=== PATIENT | female | born 1970 | race American Indian/Alaskan Native ===

== ENCOUNTER 2016-12-12 00:09 | Emergency (ER) | payer SELFPAY ==
[2016-12-12 00:28] VITALS: BP 153/83
[2016-12-12] MEDS ORDERED: KEPPRA 1,000 MG/NS 0.75% 100ML 1,000 MG/100 ML BAG IV ONE (03:13)
[2016-12-12 03:40] LABS: Basophils % (Auto) 0.4 % (0.0-1.8); Eosinophils % (Auto) 0.1 % (0.0-4.3); Hematocrit 32.1 % (35.5-45.6); Hemoglobin 10.2 gm/dl (11.8-15.2); Mean Corpuscular HGB Conc 32 % (32-34); Platelet Count 409 K/mm3 (140-440); Red Blood Count 4.64 M/mm3 (3.65-5.03); Red Cell Distribution Width 19.5 % (13.2-15.2); White Blood Count 10.2 K/mm3 (4.5-11.0)
[2016-12-12 03:48] LABS: Mean Corpuscular Hemoglobin 22 pg (28-32); Mean Corpuscular Volume 69 fl (84-94)
[2016-12-12] MEDS ORDERED: NACL 0.9% 1000 ML 1,000 ML IV ONE (03:50)
[2016-12-12 03:56] LABS: Anion Gap 17 mmol/L; BUN/Creatinine Ratio 16.66; Blood Urea Nitrogen 10 mg/dL (9-20); Calcium 8.9 mg/dL (8.4-10.2); Carbon Dioxide 22 mmol/L (22-30); Chloride 102.9 mmol/L (98-107); Glucose 102 mg/dL (75-100); Potassium 4.4 mmol/L (3.6-5.0); Sodium 137 mmol/L (137-145)
--- NOTE | 2016-12-12 04:09 | Emergency Department Report ---
ED Seizure HPI - General Chief Complaint: Seizure Stated Complaint: SEIZURE Time Seen by Provider: 12/12/16 03:02 Source: patient, family, EMS Mode of arrival: Stretcher Limitations: No Limitations - History of Present Illness Initial Comments: 46-year-old female with a past medical history seizures presents to the hospital after having a seizure. She has no preceding symptoms. Patient states he takes Keppra 1000 mg twice a day but only took one dose yesterday. She was attempting to make the medication stretch and last longer since she has trouble affording refills. She denies any pain. Positive lip contusion. Patient is endentulous. - Related Data Previous Rx's Medication Instructions Recorded Last Taken Type levETIRAcetam [Keppra TAB] 1,000 mg PO BID #60 tablet 12/12/16 Unknown Rx Allergies Allergy/AdvReac Type Severity Reaction Status Date / Time No Known Allergies Allergy Unverified 12/12/16 00:19 ED Review of Systems ROS: Stated complaint: SEIZURE Other details as noted in HPI Comment: All other systems reviewed and negative Other: Constitutional: No fevers chills Eyes: No eye pain visual changes ENT: No ear pain or throat pain Neck: Denies pain Respiratory: Denies cough wheezing shortness of breath Cardiovascular: Denies chest pain, palpitations, syncope GI: Denies abdominal pain, nausea, vomiting, diarrhea : Denies dysuria Musculoskeletal: Denies back pain Skin: Denies rash, lesions, erythema Neurologic: Denies headache, numbness, weakness Psychiatric: Denies suicidal ideation, hallucinations ED Past Medical Hx - Past Medical History Previous Medical History?: Yes Hx Seizures: Yes - Surgical History Past Surgical History?: Yes Additional Surgical History: Jaw surgery - Social History Smoking Status: Never Smoker Substance Use Type: Prescribed - Medications Home Medications: Home Medications Medication Instructions Recorded Confirmed Last Taken Type levETIRAcetam [Keppra TAB] 1,000 mg PO BID #60 tablet 12/12/16 Unknown Rx ED Physical Exam - General Limitations: No Limitations - Other Other exam information: General: No limitations, patient is alert in no acute distress Head exam: Atraumatic, normocephalic Eyes exam: Normal appearance, pupils equal reactive to light, extraocular movements intact ENT: Moist mucous membrane, normal oropharynx, and dentulous, right-sided upper lip contusion Neck exam: Normal inspection, full range of motion, no meningismus nontender Respiratory exam: Clear to auscultation bilateral, no wheezes, rales, crackles Cardiovascular: Normal rate and rhythm, normal heart sounds Abdomen: Soft, nondistended, and nontender, with normal bowel sounds, no rebound, or guarding Extremity: Full range of motion normal inspection no deformity Back: Normal Inspection, full range of motion, no tenderness Neurologic: Alert, oriented x3, cranial nerves intact, no motor or sensory deficit Psychiatric: normal affect, normal mood Skin: Warm, dry, intact ED Course Vital Signs 12/12/16 12/12/16 12/12/16 00:06 00:11 00:20 Temperature 98 F Pulse Rate 115 H 117 H 117 H Respiratory 17 14 20 Rate Blood Pressure 153/83 153/83 O2 Sat by Pulse 99 99 Oximetry 12/12/16 01:16 Temperature Pulse Rate Respiratory 20 Rate Blood Pressure O2 Sat by Pulse 100 Oximetry - Reevaluation(s) Reevaluation #1: 12/12/16 04:05 Patient received Keppra 1000 mg IV load. Heart rate improved to 87 ED Medical Decision Making - Lab Data Result diagrams: 12/12/16 03:25 12/12/16 03:25 Lab Results 12/12/16 12/12/16 Range/Units 03:25 03:25 WBC 10.2 (4.5-11.0) K/mm3 RBC 4.64 (3.65-5.03) M/mm3 Hgb 10.2 L (11.8-15.2) gm/dl Hct 32.1 L (35.5-45.6) % MCV 69 L (84-94) fl MCH 22 L (28-32) pg MCHC 32 (32-34) % RDW 19.5 H (13.2-15.2) % Plt Count 409 (140-440) K/mm3 Lymph % (Auto) 18.1 (13.4-35.0) % Hooker % (Auto) 5.6 (0.0-7.3) % Eos % (Auto) 0.1 (0.0-4.3) % Baso % (Auto) 0.4 (0.0-1.8) % Lymph # 1.9 (1.2-5.4) K/mm3 Hooker # 0.6 (0.0-0.8) K/mm3 Eos # 0.0 (0.0-0.4) K/mm3 Baso # 0.0 (0.0-0.1) K/mm3 Seg Neutrophils % 75.8 H (40.0-70.0) % Seg Neutrophils # 7.8 H (1.8-7.7) K/mm3 Sodium 137 (137-145) mmol/L Potassium 4.4 (3.6-5.0) mmol/L Chloride 102.9 (98-107) mmol/L Carbon Dioxide 22 (22-30) mmol/L Anion Gap 17 mmol/L BUN 10 (9-20) mg/dL Creatinine 0.6 L (0.8-1.5) mg/dL Estimated GFR > 60 ml/min BUN/Creatinine Ratio 16.66 % Glucose 102 H (75-100) mg/dL Calcium 8.9 (8.4-10.2) mg/dL Magnesium 2.30 (1.7-2.3) mg/dL - Medical Decision Making Patient seizure-like it secondary to medication noncompliance. Patient received IV Keppra in the ED and will be provided a good Rx card and Keppra refill - Differential Diagnosis breakthough seizure, medication noncompliance, electrolyte abnormalities Critical Care Time: No Critical care attestation.: If time is entered above; I have spent that time in minutes in the direct care of this critically ill patient, excluding procedure time. ED Disposition Clinical Impression: Seizure, Noncompliance with medication regimen Disposition: DC- TO HOME OR SELFCARE Is pt being admited?: No Does the pt Need Aspirin: No Condition: Stable Instructions: Recurrent Seizures Adult (ED) Additional Instructions: Taking her medication as prescribed and try not to miss doses. Use the good Rx' s card provided to make her medications more affordable. Please return if symptoms worsen Prescriptions: levETIRAcetam [Keppra TAB] 1,000 mg PO BID #60 tablet Referrals: [facility] [Provider Group] - 3-5 Days ADELA HORTON MD [Staff Physician] - 3-5 Days (Neurologist) Time of Disposition: 04:10
== END 2016-12-12 04:22 | disposition home or self-care (01) ==
LOC: EDSEX 00:09 → ED 00:09
DX: R56.9 Unspecified convulsions (principal); Z91.14 Patient's other noncompliance with medication regimen
CPT/HCPCS: 36415; 80048; 83735; 85025; 96374; 99284; J1953

== ENCOUNTER 2017-07-05 19:24 | Emergency (ER) | payer SELFPAY ==
[2017-07-05 20:25] LABS: Hematocrit 32.9 % (30.3-42.9); Hemoglobin 10.2 gm/dl (10.1-14.3); Mean Corpuscular HGB Conc 31 % (30-34); Platelet Count 419 K/mm3 (140-440); Red Blood Count 4.86 M/mm3 (3.65-5.03)
[2017-07-05 20:26] LABS: Mean Corpuscular Hemoglobin 21 pg (28-32); Mean Corpuscular Volume 68 fl (79-97); Red Cell Distribution Width 21.7 % (13.2-15.2)
[2017-07-05] MEDS ORDERED: KEPPRA 1,000 MG/NS 0.75% 100ML 1,000 MG/100 ML BAG IV ONE (20:28)
[2017-07-05 20:29] LABS: BUN/Creatinine Ratio 15; Blood Urea Nitrogen 9 mg/dL (7-17); Calcium 9.1 mg/dL (8.4-10.2); Hemolysis Index 3
--- NOTE | 2017-07-05 20:39 | Emergency Department Report ---
HPI - General Chief Complaint: Seizure Time Seen by Provider: 07/05/17 19:51 - HPI HPI: Room 22 The patient is a 47-year-old female presenting with chief complaint seizure. Patient states she seizure today. Patient states she's been compliant with her Keppra. The patient states her last seizure occurred over 6 months ago. Patient currently denies complaints. Patient denies having any type pain. Location: Central nervous system Duration: Unknown Quality: [See above] Severity: Mild Modifying factors: [see above] Context: [see above] Mode of transportation: [not driving] ED Past Medical Hx - Past Medical History Previous Medical History?: Yes Hx Seizures: Yes Hx Psychiatric Treatment: Yes (depression) Additional medical history: Patient states her first seizure was in 2009 - Surgical History Past Surgical History?: Yes Additional Surgical History: jaw surgery - Family History Family history: no significant - Social History Smoking Status: Never Smoker Substance Use Type: None - Medications Home Medications: Home Medications Medication Instructions Recorded Confirmed Last Taken Type Citalopram [celeXA] 20 mg PO QDAY 07/05/17 07/05/17 Unknown History levETIRAcetam [Keppra TAB] 1,000 mg PO BID #60 tablet 07/05/17 Unknown Rx ED Review of Systems ROS: Stated complaint: CONVULSIONS Other details as noted in HPI Constitutional: no symptoms reported Eyes: denies: eye pain ENT: denies: throat pain Cardiovascular: denies: chest pain Gastrointestinal: denies: abdominal pain Genitourinary: denies: dysuria Musculoskeletal: denies: back pain Neurological: denies: headache Physical Exam - Physical Exam Vital Signs: Vital Signs 07/05/17 07/05/17 19:51 20:00 Temperature 98.3 F Pulse Rate 106 H Respiratory 16 16 Rate Blood Pressure 141/81 O2 Sat by Pulse 98 98 Oximetry Vital Signs 07/05/17 07/05/17 07/05/17 19:44 19:45 19:50 Temperature Pulse Rate 102 H 107 H 108 H Respiratory 19 20 19 Rate Blood Pressure 141/81 141/81 O2 Sat by Pulse 98 98 97 Oximetry 07/05/17 07/05/17 07/05/17 19:51 19:55 20:00 Temperature 98.3 F Pulse Rate 106 H 106 H 108 H Respiratory 16 16 19 Rate Blood Pressure 141/81 141/81 140/83 O2 Sat by Pulse 98 98 99 Oximetry 07/05/17 07/05/17 07/05/17 20:05 20:11 20:15 Temperature Pulse Rate 103 H 98 H 96 H Respiratory 16 17 18 Rate Blood Pressure 140/83 141/81 141/81 O2 Sat by Pulse 96 98 100 Oximetry 07/05/17 07/05/17 07/05/17 20:21 20:25 20:31 Temperature Pulse Rate 90 100 H 93 H Respiratory 18 18 16 Rate Blood Pressure 141/81 141/81 141/81 O2 Sat by Pulse 100 100 98 Oximetry 07/05/17 07/05/17 20:35 20:41 Temperature Pulse Rate 92 H 88 Respiratory 18 12 Rate Blood Pressure 141/81 141/81 O2 Sat by Pulse 100 98 Oximetry Physical Exam: GENERAL: The patient is well-developed well-nourished female lying on stretcher not appearing to be in acute distress. [] HEENT: Normocephalic. Atraumatic. Extraocular motions are intact. Patient has moist mucous membranes. NECK: Supple. Trachea midline CHEST/LUNGS: Clear to auscultation. There is no respiratory distress noted. HEART/CARDIOVASCULAR: Regular. There is no tachycardia. There is no gallop rub or murmur. ABDOMEN: Abdomen is soft, nontender. Patient has normal bowel sounds. There is no abdominal distention. SKIN: There is no rash. There is no edema. There is no diaphoresis. NEURO: The patient is awake, alert, and oriented. The patient is cooperative. The patient has no focal neurologic deficits. The patient has normal speech. Cranial nerves II through XII grossly intact, no drift MUSCULOSKELETAL: There is no evidence of acute injury. ED Course Vital Signs 07/05/17 07/05/17 19:51 20:00 Temperature 98.3 F Pulse Rate 106 H Respiratory 16 16 Rate Blood Pressure 141/81 O2 Sat by Pulse 98 98 Oximetry ED Medical Decision Making - Lab Data Result diagrams: 07/05/17 20:14 07/05/17 20:14 Laboratory Tests 07/05/17 07/05/17 20:14 20:14 WBC 6.9 RBC 4.86 Hgb 10.2 Hct 32.9 MCV 68 L MCH 21 L MCHC 31 RDW 21.7 H Plt Count 419 Sodium 139 Potassium 4.1 Chloride 103.7 Carbon Dioxide 22 Anion Gap 17 BUN 9 Creatinine 0.6 L Estimated GFR > 60 BUN/Creatinine Ratio 15 Glucose 113 H Calcium 9.1 - Differential Diagnosis seizure Critical care attestation.: If time is entered above; I have spent that time in minutes in the direct care of this critically ill patient, excluding procedure time. ED Disposition Clinical Impression: Seizure Disposition: DC-01 TO HOME OR SELFCARE Is pt being admited?: No Condition: Stable Instructions: Epilepsy (ED) Additional Instructions: Return to the emergency department immediately should you develop worsening symptoms, fever, inability to tolerate food or liquid or any other concerns. Prescriptions: levETIRAcetam [Keppra TAB] 1,000 mg PO BID #60 tablet Referrals: EDA SEWELL MD [Primary Care Provider] - 3-5 Days JESUS VERONICA MD [Staff Physician] - 3-5 Days (Dr. Veronica is a neurologist. Please follow with him further evaluation if you do not already have a neurologist) Time of Disposition: 20:51
[2017-07-05 22:05] VITALS: BP 151/77
== END 2017-07-05 22:07 | disposition home or self-care (01) ==
LOC: ED 19:24
DX: R56.9 Unspecified convulsions (principal)
CPT/HCPCS: 36415; 80048; 85027; 96365; 99284; J1953